=== PATIENT | female | born 1985 | race Caucasian/White ===

== ENCOUNTER → 2019-05-29 | Outpatient (CLI) | payer OTHER ==
--- NOTE | 2019-05-29 16:41 | Diagnostic Imaging Report ---
INDICATION: Shoulder pain. EXAMINATION: AP, oblique, and transscapular views of both shoulders are obtained. FINDINGS: On both sides, there is no evidence of fracture or dislocation. Glenohumeral joint and AC joint appear normal on both sides. There are symmetric bilateral calcifications near the rotator cuff insertion, compatible with calcific tendinitis. IMPRESSION: Findings compatible with calcific tendinitis of both shoulders. No acute fracture or dislocation. Dictated by: Dictated on workstation # [id number]
--- NOTE | 2019-05-29 16:52 | Diagnostic Imaging Report ---
INDICATION: Neck pain going into the shoulders over the past year, increasing in severity over the past two months. TECHNIQUE: AP, lateral and odontoid views cervical spine. CORRELATION STUDY: None. FINDINGS: There is slight straightening of the normal cervical lordosis. Trace anterolisthesis of C2 on C3, C3 on C4, and C4 on C5. There is moderate disc space narrowing at the C5-C6 and to a lesser degree C4-C5 levels. No significant endplate osteophyte formation. Prevertebral soft tissues are unremarkable. Mildly prominent C7 cervical ribs. IMPRESSION: 1. Negative for acute findings of the cervical spine. Mild multilevel cervical spondylosis. Dictated by: Dictated on workstation # [id number]
== END ==
LOC: RAD 15:24
PROVIDERS: ATTEND Family Medicine
DX: M47.812 Spondylosis without myelopathy or radiculopathy, cervical region (principal); M25.511 Pain in right shoulder; M25.512 Pain in left shoulder
CPT/HCPCS: 72040

== ENCOUNTER → 2019-09-16 | Outpatient (CLI) | payer BC ==
--- NOTE | 2019-09-16 13:48 | Diagnostic Imaging Report ---
INDICATION: Palpable lump in the right axilla. COMPARISON: No prior mammograms are available for comparison. TECHNIQUE: 2D and 3D bilateral diagnostic mammography was performed with CAD. A BB marker was placed at the area of palpable abnormality in the right axilla. FINDINGS: Both breasts are heterogeneously dense, limiting the sensitivity of mammography. There appear to be some prominent lymph nodes in the right axilla, likely accounting for the palpable fullness. No other masses are seen. No suspicious microcalcifications are seen. The left axilla is unremarkable. IMPRESSION: Prominent lymph nodes in the right axilla likely account for the palpable abnormality. Further evaluation of this area with ultrasound is recommended and will be performed today. ACR BI-RADS Category 0: Incomplete. (Needs additional imaging evaluation). Result letter will be mailed to the patient. Note: At least 10% of breast cancer is not imaged by mammography. Dictated by: Dictated on workstation # [id number]
--- NOTE | 2019-09-16 14:15 | Diagnostic Imaging Report ---
INDICATION: Right axillary lump. COMPARISON: Correlation is made with diagnostic mammogram earlier same day. TECHNIQUE: Sonographic interrogation of the right axilla was performed. FINDINGS: There are prominent lymph nodes in the right axilla. The largest lymph node measures 4.4 x 1.4 x 1.8 cm. Smaller lymph node measures approximately 1.4 x 0.7 cm. No other abnormalities are seen. IMPRESSION: Prominent right axillary lymph nodes. These could be reactive, however close follow-up after therapy course is recommended with follow-up ultrasound in approximately six weeks to confirm resolution. If this persists, this could be sampled using ultrasound guidance. Dictated by: Dictated on workstation # [id number]
== END ==
LOC: RAD 13:06
PROVIDERS: ATTEND Internal Medicine
DX: N63.31 Unspecified lump in axillary tail of the right breast (principal); Q83.9 Congenital malformation of breast, unspecified; R59.0 Localized enlarged lymph nodes
CPT/HCPCS: 77066

== ENCOUNTER → 2019-10-15 | Outpatient (CLI) | payer BC ==
[~2019-10-15] VITALS: Ht 160 cm; Wt 59.1 kg
[~2019-10-15] MED LIST: LIDOCAINE 1% INJ 20 ML 20 ML VIAL INJ ONE
--- NOTE | 2019-10-15 11:08 | Diagnostic Imaging Report ---
INDICATION: Enlarged right axillary lymph node. Patient presents for ultrasound-guided biopsy. Patient was brought to the procedure room and placed on the table in the supine position. Ultrasound imaging of the right axilla was performed to evaluate appropriate entry site. The right axilla was then prepped and draped in usual sterile fashion. Small amount of 1% lidocaine was utilized for local anesthesia. A total of 4 passes were made into the enlarged right axillary lymph node utilizing a 14-gauge Achieve needle. Core sampling was performed. Marker clip was then deployed. Hemostasis was obtained using manual compression. Patient tolerated the procedure well and was sent for postprocedure mammogram in satisfactory condition. IMPRESSION: Successful ultrasound-guided core biopsy of the enlarged lymph node in the right axilla. Pathology results are currently pending. Dictated by: Dictated on workstation # [id number]
--- NOTE | 2019-10-15 13:27 | Diagnostic Imaging Report ---
INDICATION: Enlarged right axillary lymph node. Patient status post ultrasound-guided biopsy. Unilateral right 2-D MLO mammogram was performed. Enlarged lymph node right axilla is noted. There is a marker clip located within the lymph node. IMPRESSION: Status post biopsy of right axillary lymph node with marker clip in place. Dictated by: Dictated on workstation # [id number]
== END ==
LOC: RAD 09:33
PROVIDERS: ATTEND Family Medicine
DX: R59.0 Localized enlarged lymph nodes (principal)
CPT/HCPCS: 19083; 87070; 87075; 87101; 87205; 88305

== ENCOUNTER → 2020-02-17 | Outpatient (CLI) | payer BC ==
[~2020-02-17] VITALS: Ht 160 cm; Wt 61.4 kg
[~2020-02-17] MED LIST changes: +GADOBUTROL 7.5 MMOL/7.5 ML (GADAVIST) VIAL IV ONE; +IOHEXOL 240 MGI/ML 50 ML (OMNIPAQUE) VIAL IV ONE; +IOHEXOL 300 MG/ML 50 ML (OMNIPAQUE 300) VIAL IV ONE; -LIDOCAINE 1% INJ 20 ML 20 ML VIAL INJ ONE
--- NOTE | 2020-02-17 14:43 | Diagnostic Imaging Report ---
EXAMINATION: Right shoulder injection for MRI. INDICATION: Shoulder pain. DETAILS OF THE PROCEDURE: Following aseptic preparation of the skin and administration of local anesthesia, a 21-gauge needle was advanced into the glenohumeral joint using fluoroscopic guidance. Subsequently, a 12 cc mixture of sodium chloride, Omnipaque 240, and Gadovist was infused. The patient tolerated the procedure well and was sent to the MR suite in good condition. IMPRESSION: There has been a successful injection of the right glenohumeral joint. MRI is pending for further study. Dictated by: Dictated on workstation # [id number]
--- NOTE | 2020-02-17 14:58 | Diagnostic Imaging Report ---
EXAMINATION: Magnetic resonance imaging of the right shoulder with intra-articular contrast. DATE: February 17, 2020. COMPARISON: Right shoulder arthrogram February 17, 2020. Shoulder radiographs May 29, 2019. HISTORY: 34-year-old female, right shoulder pain. Evaluation for superior labral tear. TECHNIQUE: Magnetic Resonance Imaging sequences were performed of the shoulder following the intra-articular administration of contrast. FINDINGS: ROTATOR CUFF, LIGAMENTS, TENDONS, AND MUSCLES: The supraspinatus, infraspinatus, teres minor, and subscapularis tendons and muscles are without tear. There is abnormal low signal in the region of the supraspinatus tendon, compatible with calcific tendinitis. There is normal rotator cuff muscle bulk and signal. LONG HEAD OF BICEPS: The biceps labral attachment and long head of the biceps tendon are intact. The long head of the biceps tendon is normally positioned within the bicipital groove. GLENOHUMERAL JOINT: The humeral head is well positioned relative to the glenoid. The labrum is intact. There is no identified paralabral cyst. The articular cartilage is grossly intact. There is no identified intra-articular body or prominent synovitis. ACROMIOCLAVICULAR JOINT: The acromioclavicular joint is normally aligned. The coracoclavicular and coracoacromial ligaments are intact. There are no degenerative changes of the acromioclavicular joint. BONE: The bones all have normal configuration. The bone marrow signal is within normal limits. Specifically, negative for fracture, osteomyelitis, osteonecrosis, or marrow replacing process. BURSAE AND SOFT TISSUES: The bursae and soft tissue surrounding the shoulder are unremarkable. IMPRESSION: 1. Calcific tendinitis of the supraspinatus. The rotator cuff tendons are otherwise intact. 2. Intact proximal long head of biceps tendon. 3. Intact labrum and unremarkable additional glenohumeral joint evaluation. 4. Intact acromioclavicular joint. 5. No acute fracture, bone contusion, or evidence of osteonecrosis. Dictated by: Dictated on workstation # [id number]
== END ==
LOC: RAD 13:30
PROVIDERS: ATTEND Orthopaedic Surgery
DX: S43.431A Superior glenoid labrum lesion of right shoulder, initial encounter (principal); M75.31 Calcific tendinitis of right shoulder
CPT/HCPCS: 23350; 73040; 73222

== ENCOUNTER → 2021-09-11 | Outpatient (CLI) | payer BC ==
--- NOTE | 2021-09-11 21:43 | Diagnostic Imaging Report ---
INDICATION: Bilateral screening mammogram. At this time there is no current complaint. COMPARISON: This study was compared to the prior exam of 09/16/2019. EXAMINATION: Bilateral digital screening mammogram with CAD. 3D tomographic images were obtained and reviewed. The current study was also evaluated with a Computer Aided Detection (CAD) system. FINDINGS: The fibroglandular tissue in both breasts is heterogeneously dense. This does limit the sensitivity of this exam. Overall, there does not appear to have been any significant change when compared to the prior study. No primary or secondary sign of malignancy is noted. IMPRESSION: There is no radiographic evidence for malignancy. ACR BI-RADS Category 1: Negative. Result letter will be mailed to the patient. Note: At least 10% of breast cancer is not imaged by mammography. Dictated by: Dictated on workstation # [id number]
== END ==
LOC: RAD 08:30
PROVIDERS: ATTEND Family Medicine
DX: Z12.31 Encounter for screening mammogram for malignant neoplasm of breast (principal)
CPT/HCPCS: 77063; 77067

== ENCOUNTER → 2022-10-05 | Outpatient (CLI) | payer BC ==
--- NOTE | 2022-10-05 11:15 | Diagnostic Imaging Report ---
Indication: Routine screening. Comparison is made with prior mammograms from 09/11/2021 and 09/16/2019. 2-D and 3-D bilateral screening mammography was performed with CAD. Both breasts are heterogeneously dense, limiting the sensitivity of mammography. The overall parenchymal pattern is stable. No mass or malignant-appearing microcalcifications are seen. Axillae are unremarkable. IMPRESSION: BI-RADS Category 1 No mammographic features suspicious for malignancy are identified. ACR BI-RADS Category 1: Negative. Result letter will be mailed to the patient. Note: At least 10% of breast cancer is not imaged by mammography. Dictated by: Dictated on workstation # [id number]
== END ==
LOC: RAD 08:34
PROVIDERS: ATTEND Family Medicine
DX: Z12.31 Encounter for screening mammogram for malignant neoplasm of breast (principal)
CPT/HCPCS: 77063; 77067